=== PATIENT | female | born 1965 | race Caucasian/White ===

== ENCOUNTER 2017-02-13 16:05 | Inpatient (IN) | payer OTHER ==
[2017-02-13 16:41] VITALS: BMI 37.8
[2017-02-13 18:59] LABS: BASOPHIL 0.4 % (0-2.0); NEUTROPHILS 83.4 % (42.8-82.8); PLATELET COUNT 232 K/MM3 (134-434); RDW 14.7 % (11.6-15.6); WHITE BLOOD COUNT 8.3 K/mm3 (4.0-10.0)
[2017-02-13 19:01] LABS: VENOUS PH 7.49 (7.32-7.42)
--- NOTE | 2017-02-13 19:04 | PDOC ---
History of Present Illness - General Chief Complaint: SIRS, Suspected/Possible Stated Complaint: FEVER, TREMORS, Abd pain History Source: Patient Exam Limitations: No Limitations - History of Present Illness Travel History: No Initial Comments: 02/13/17 19:02 51 yo F with h/o HTN here wtih c/o lower abd pain, fever chils and flank pain. started 3 days ago, no relief with meds. does have nausea, no vomiting. urinary frequency, and dysuria. pelvic, suprapubic pressure. no mod factors. no cough, no cp no sob. no vagina dc or bleeding. no change to bowels. pcp at [facility] Timing/Duration: reports: constant, getting worse Quality: reports: moderate Abdominal Pain Onset Location: reports: suprapubic Pain Radiation: reports: no radiation Activities at Onset: reports: none Treatment Prior to Arrive: improves with: analgesics Aggravating Factors: improves with: None Alleviating Factors: improves with: None Past History - Past Medical History Allergies/Adverse Reactions: Allergies Allergy/AdvReac Type Severity Reaction Status Date / Time No Known Allergies Allergy Verified 02/13/17 16:27 Home Medications: Ambulatory Orders Levofloxacin [Levaquin] 750 mg PO DAILY #3 tablet 02/17/17 Cardiac Disorders: Yes (mitral valve prolapse) HTN: Yes Hypercholesterolemia: Yes - Psycho/Social/Smoking Cessation Hx Suicidal Ideation: No Smoking History: Never smoked Information on smoking cessation initiated: No Hx Alcohol Use: No Drug/Substance Use Hx: No Substance Use Type: None Review of Systems - Review of Systems Constitutional: Yes: Chills, Diaphoresis, Fever HEENTM: No: Eye Pain, Blurred Vision Respiratory: No: Cough, Orthopnea Cardiac (ROS): No: Chest Pain, Edema ABD/GI: Yes: Other (abd pain). No: Abdominal Distended, Abd. Pain w/ defecation : Yes: Burning, Dysuria, Frequency, Flank Pain Musculoskeletal: Yes: Back Pain All Other Systems: Reviewed and Negative *Physical Exam - Vital Signs Last Vital Signs Temp Pulse Resp BP Pulse Ox 102.6 F H 105 H 18 137/56 98 02/13/17 16:26 02/13/17 16:26 02/13/17 16:26 02/13/17 16:26 02/13/17 16:26 - Physical Exam General Appearance: Yes: Nourished HEENT: positive: Normal ENT Inspection, Normal Voice, Other (dry mucous membranes) Respiratory/Chest: positive: Lungs Clear, Normal Breath Sounds Cardiovascular: positive: Regular Rhythm, Regular Rate. negative: Edema, JVD, Murmur Vascular Pulses: Dorsalis-Pedis (R): 2+, Doralis-Pedis (L): 2+ Gastrointestinal/Abdominal: positive: Normal Bowel Sounds, Other (suprapubic ttp , no rebound no guarding. ) Musculoskeletal: positive: CVA Tenderness Extremity: positive: Normal Capillary Refill Integumentary: positive: Normal Color, Dry, Warm ED Treatment Course - LABORATORY CBC & Chemistry Diagram: 02/17/17 06:20 02/16/17 06:00 - ADDITIONAL ORDERS Additional order review: Laboratory Results 02/13/17 19:00 VBG pH 7.49 H POC VBG pCO2 33.5 L POC VBG pO2 56.3 H Mixed VBG HCO3 25.0 02/13/17 18:43 RBC 4.36 MCV 78.0 L MCHC 32.0 RDW 14.7 MPV 8.0 Neutrophils % 83.4 H Lymphocytes % 7.9 L Monocytes % 8.3 Eosinophils % 0.0 Basophils % 0.4 *DC/Admit/Observation/Transfer Diagnosis at time of Disposition: Pyelonephritis Fever Qualifiers: Encounter type: initial encounter - Discharge Dispostion Condition at time of disposition: Stable Admit: Yes - Prescriptions
[2017-02-13 19:09] LABS: URINE APPEARANCE CLEAR; URINE BILIRUBIN NEGATIVE (NEGATIVE); URINE BLOOD NEGATIVE (NEGATIVE); URINE COLOR YELLOW; URINE GLUCOSE (UA) NEGATIVE (NEGATIVE); URINE KETONE NEGATIVE (NEGATIVE); URINE NITRITE NEGATIVE (NEGATIVE); URINE UROBILINOGEN NEGATIVE E.U./dl (0.2-1.0)
[2017-02-13 19:13] LABS: URINE LEUK ESTERASE TRACE (NEGATIVE); URINE PROTEIN 1+ (NEGATIVE)
[2017-02-13 19:15] LABS: URINE BACTERIA RARE /hpf (NONE SEEN); URINE MUCUS RARE; URINE RBC 4 /hpf (0-3); URINE WBC 13 /hpf (3-5)
[2017-02-13] MEDS ORDERED: SODIUM CHLORIDE 1,000 ML IV STA ×2 (19:15)
[2017-02-13] MEDS ORDERED: ACETAMINOPHEN 1000 MG/100 ML VIAL (NON FORMULARY) IVPB ONE (19:15)
[2017-02-13] MEDS ORDERED: CEFTRIAXONE 1 GM in DEXTROSE 5%-WATER - 50 ML IVPB ONE (19:17)
[2017-02-13] MEDS ORDERED: ACETAMINOPHEN INJECTION 100 ML IVPB ONE (19:33)
[2017-02-13] MEDS ORDERED: CEFTRIAXONE 50 ML ONE (19:34)
[2017-02-13] MEDS ORDERED: ONDANSETRON 4 MG/2 ML VIAL ONE (19:37)
[2017-02-13 19:59] LABS: ALBUMIN 3.2 g/dl (3.4-5.0); ANION GAP 10 (8-16); CALCIUM 8.2 mg/dL (8.5-10.1); CO2 26 mmol/L (21-32); GLUCOSE,RANDOM 117 mg/dL (74-106)
[2017-02-13 20:02] LABS: ALK PHOS 65 U/L (45-117); BILIRUBIN,TOTAL 0.3 mg/dL (0.2-1.0); COCKROFT - GAULT 90.5845; CREATININE 0.9 mg/dL (0.55-1.02); SGOT/AST 37 U/L (15-37); SGPT/ALT 35 U/L (12-78)
[2017-02-13] MEDS ORDERED: KETOROLAC TROMETHAMINE 15 MG/ML VIAL IVPUSH ONE (21:27)
[2017-02-13] MEDS ORDERED: KETOROLAC TROMETHAMINE 15 MG/ML VIAL ONE (21:54)
[2017-02-13] MEDS ORDERED: KETOROLAC TROMETHAMINE 15 MG/ML VIAL IVPUSH PRN (22:13)
[2017-02-13] MEDS ORDERED: DOCUSATE SODIUM 100 MG CAPSULE (FP) PO PRN (22:13)
[2017-02-13] MEDS ORDERED: ONDANSETRON 4 MG/2 ML VIAL IVPB PRN (22:13)
--- NOTE | 2017-02-13 22:26 | HP ---
<Amee Bailey - Last Filed: 02/13/17 22:50> CHIEF COMPLAINT: abdominal pain x3 days and fever PCP: HISTORY OF PRESENT ILLNESS: 51 year old female who presents to the ED complaining of 3 day hx of lower abdominal pain radiating to the groin, 10/10 intensity, exacerbated by urination , associated with fever, chills, headache and episodes of vomiting. No prior episodes of pain like this b4. No prior hx of UTI. Pt had episode of n/v while in ED. Recent Travel: No PAST MEDICAL HISTORY: hypertension PAST SURGICAL HISTORY: bilateral knee surgery, sinus surgery Social History: Smoking: no Alcohol:no Drugs: no Family History: non contributory Allergies No Known Allergies Allergy (Verified 02/13/17 16:27) HOME MEDICATIONS: Home Medications Medication Instructions Recorded Unobtainable [Unobtainable] 02/13/17 REVIEW OF SYSTEMS CONSTITUTIONAL: Present: fever Absent: chills, diaphoresis, generalized weakness, malaise, loss of appetite, weight change HEENT: Absent: rhinorrhea, nasal congestion, throat pain, throat swelling, difficulty swallowing, mouth swelling, ear pain, eye pain, visual changes CARDIOVASCULAR: Absent: chest pain, syncope, palpitations, irregular heart rate, lightheadedness , peripheral edema RESPIRATORY: Absent: cough, shortness of breath, dyspnea with exertion, orthopnea, wheezing, stridor, hemoptysis GASTROINTESTINAL: Present: lower abdominal pain, nausea, vomiting Absent: abdominal distension, diarrhea, constipation, melena, hematochezia GENITOURINARY: Present: dysuria, flank pain, genital pain Absent: frequency, urgency, hesitancy, hematuria, MUSCULOSKELETAL: Absent: myalgia, arthralgia, joint swelling, back pain, neck pain SKIN: Absent: rash, itching, pallor HEMATOLOGIC/IMMUNOLOGIC: Absent: easy bleeding, easy bruising, lymphadenopathy, frequent infections ENDOCRINE: Absent: unexplained weight gain, unexplained weight loss, heat intolerance, cold intolerance NEUROLOGIC: [place]:headache Absent:focal weakness or paresthesias, dizziness, unsteady gait, seizure, mental status changes, bladder or bowel incontinence PSYCHIATRIC: Absent: anxiety, depression, suicidal or homicidal ideation, hallucinations. PHYSICAL EXAMINATION Vital Signs - 24 hr 02/13/17 02/13/17 16:26 21:44 Temperature 102.6 F H 100.2 F H Pulse Rate 105 H Pulse Rate [ 97 H Apical] Respiratory 18 20 Rate Blood Pressure 137/56 Blood Pressure 126/79 [Left Arm] O2 Sat by Pulse 98 99 Oximetry (%) GENERAL: Awake, alert, and fully oriented, in no acute distress. HEAD: Normal with no signs of trauma. EYES: Pupils equal, round and reactive to light, extraocular movements intact, sclera anicteric, conjunctiva clear. No lid lag. EARS, NOSE, THROAT: Ears normal, nares patent, oropharynx clear without exudates. Moist mucous membranes. NECK: Normal range of motion, supple without lymphadenopathy, JVD, or masses. LUNGS: Breath sounds equal, clear to auscultation bilaterally. No wheezes, and no crackles. No accessory muscle use. HEART: Regular rate and rhythm, normal S1 and S2 without murmur, rub or gallop. ABDOMEN: (+)General obesity, Suprapubic tenderness, Lower abdomen tenderness upon palpation with no guarding or rebound. Soft, not distended, normoactive bowel sounds, no masses. No hepatomegaly or splenomegaly. MUSCULOSKELETAL: (+)bilateral CVA tenderness. Normal range of motion at all joints. No bony deformities or tenderness. UPPER EXTREMITIES: 2+ pulses, warm, well-perfused. No cyanosis. No clubbing. No peripheral edema. LOWER EXTREMITIES: 2+ pulses, warm, well-perfused. No calf tenderness. No peripheral edema. NEUROLOGICAL: Cranial nerves II-XII intact. Normal speech. Normal gait. PSYCHIATRIC: Cooperative. Good eye contact. Appropriate mood and affect. SKIN: Warm, dry, normal turgor, no rashes or lesions noted, normal capillary refill. Laboratory Results - last 24 hr 02/13/17 02/13/17 02/13/17 18:43 18:43 19:00 WBC 8.3 RBC 4.36 Hgb 10.9 Hct 34.0 MCV 78.0 L MCHC 32.0 RDW 14.7 Plt Count 232 MPV 8.0 Neutrophils % 83.4 H Lymphocytes % 7.9 L Monocytes % 8.3 Eosinophils % 0.0 Basophils % 0.4 VBG pH 7.49 H POC VBG pCO2 33.5 L POC VBG pO2 56.3 H Mixed VBG HCO3 25.0 Sodium 137 Potassium 3.4 L Chloride 101 Carbon Dioxide 26 Anion Gap 10 BUN 15 Creatinine 0.9 Creat Clearance w eGFR > 60 Random Glucose 117 H Lactic Acid Calcium 8.2 L Total Bilirubin 0.3 AST 37 ALT 35 Alkaline Phosphatase 65 Total Protein 7.0 Albumin 3.2 L Urine Color Urine Appearance Urine pH Ur Specific [place] Urine Protein Urine Glucose (UA) Urine Ketones Urine Blood Urine Nitrite Urine Bilirubin Urine Urobilinogen Ur Leukocyte Esterase Urine RBC Urine WBC Ur Epithelial Cells Urine Bacteria Urine Mucus 02/13/17 02/13/17 19:00 19:00 WBC RBC Hgb Hct MCV MCHC RDW Plt Count MPV Neutrophils % Lymphocytes % Monocytes % Eosinophils % Basophils % VBG pH POC VBG pCO2 POC VBG pO2 Mixed VBG HCO3 Sodium Potassium Chloride Carbon Dioxide Anion Gap BUN Creatinine Creat Clearance w eGFR Random Glucose Lactic Acid 1.055 Calcium Total Bilirubin AST ALT Alkaline Phosphatase Total Protein Albumin Urine Color Yellow Urine Appearance Clear Urine pH 5.0 Ur Specific [place] 1.020 Urine Protein 1+ H Urine Glucose (UA) Negative Urine Ketones Negative Urine Blood Negative Urine Nitrite Negative Urine Bilirubin Negative Urine Urobilinogen Negative Ur Leukocyte Esterase Trace H Urine RBC 4 Urine WBC 13 Ur Epithelial Cells Rare Urine Bacteria Rare Urine Mucus Rare CT Abdomen and Pelvis : HISTORY PROVIDED: Rule out diverticulitis. Sequential axial images were obtained from the domes of the diaphragms through the symphysis pubis following the administration of both oral and intravenous contrast material. The study is markedlylimited due to the patient's poor cooperation. The liver, spleen, pancreas, adrenal glands and kidneys demonstrate no significant abnormalities. There is a 1.6 cm left hepatic cyst. The gallbladder is clear. There is no evidence of intra-abdominal or retroperitoneal lymphadenopathy or fluid collections. There is no evidence of pneumoperitoneum, bowel obstruction or intra-abdominal abscess. There is no CT evidence of acute appendicitis or diverticulitis. Examination of the pelvis demonstrates a markedly enlarged and heterogeneous uterus. This is consistent with multiple leiomyomata. There is no evidence of pelvic masses, fluid collections or lymphadenopathy. IMPRESSION: Fibroid uterus with no evidence of diverticulitis or acute pathology. Limited study as described above. Reported By: William Wright MD 02/13/17 ASSESSMENT/PLAN: 51 y old female that presents with dysuria, fever, clinical signs of pyelonephritis supported by abnormal UA 1. Acute cystitis/ possible pyelonephritis. - obtain urine cultures - pt received IV rocephin and will continue - will adjust abx based on culture results - IVF - Pain control and antipyretics - CT scan of abdomen ordered and will follow results closely r/o obstructive nephropathy, r/o possible diverticulitis. 2. SIRS, fever, tachycardia, source of infection being urinary tract, hemodynamically stable. - Will treat underlying cause as mentioned above 3. Hx of hypertension/stable - For now we will Monitor of medications, BP is optimally controlled Based on pt's symptoms upon presentation (possible sepsis, pyelonephritis, nausea and vomiting) risk of further deterioration of her condition due to inability to tolerate oral medications, her condition meets necessity for hospitalization with anticipated length of treatment with abx greater than 2 midnights. Will admit as an inpatient. Documentation prepared by ZARINA Dodd, acting as rn medical inpatient services for Ellis Bermudez MD. <Ellis Bermudez - Last Filed: 02/13/17 23:01> : Visit type - Emergency Visit Emergency Visit: Yes Care time: The patient presented to the Emergency Department on the above date and was hospitalized for further evaluation of their emergent condition. - New Patient This patient is new to me today: Yes Date on this admission: 02/13/17 - Critical Care Critical Care patient: No
[2017-02-13] MEDS: SODIUM CHLORIDE 1,000 ML IV SCH (22:34)
--- NOTE | 2017-02-13 23:32 | PDOC ---
*Physical Exam - Vital Signs Last Vital Signs Temp Pulse Resp BP Pulse Ox 100.2 F H 97 H 20 126/79 99 02/13/17 21:44 02/13/17 21:44 02/13/17 21:44 02/13/17 21:44 02/13/17 21:44 ED Treatment Course - LABORATORY CBC & Chemistry Diagram: 02/13/17 18:43 02/13/17 18:43 - ADDITIONAL ORDERS Additional order review: Laboratory Results 02/13/17 02/13/17 02/13/17 19:00 19:00 19:00 VBG pH 7.49 H POC VBG pCO2 33.5 L POC VBG pO2 56.3 H Mixed VBG HCO3 25.0 Sodium Potassium Chloride Carbon Dioxide Anion Gap BUN Creatinine Creat Clearance w eGFR Random Glucose Lactic Acid 1.055 Calcium Total Bilirubin AST ALT Alkaline Phosphatase Total Protein Albumin Urine Color Yellow Urine Appearance Clear Urine pH 5.0 Ur Specific [place] 1.020 Urine Protein 1+ H Urine Glucose (UA) Negative Urine Ketones Negative Urine Blood Negative Urine Nitrite Negative Urine Bilirubin Negative Urine Urobilinogen Negative Ur Leukocyte Esterase Trace H Urine RBC 4 Urine WBC 13 Ur Epithelial Cells Rare Urine Bacteria Rare Urine Mucus Rare 02/13/17 18:43 VBG pH POC VBG pCO2 POC VBG pO2 Mixed VBG HCO3 Sodium 137 Potassium 3.4 L Chloride 101 Carbon Dioxide 26 Anion Gap 10 BUN 15 Creatinine 0.9 Creat Clearance w eGFR > 60 Random Glucose 117 H Lactic Acid Calcium 8.2 L Total Bilirubin 0.3 AST 37 ALT 35 Alkaline Phosphatase 65 Total Protein 7.0 Albumin 3.2 L Urine Color Urine Appearance Urine pH Ur Specific [place] Urine Protein Urine Glucose (UA) Urine Ketones Urine Blood Urine Nitrite Urine Bilirubin Urine Urobilinogen Ur Leukocyte Esterase Urine RBC Urine WBC Ur Epithelial Cells Urine Bacteria Urine Mucus 02/13/17 18:43 RBC 4.36 MCV 78.0 L MCHC 32.0 RDW 14.7 MPV 8.0 Neutrophils % 83.4 H Lymphocytes % 7.9 L Monocytes % 8.3 Eosinophils % 0.0 Basophils % 0.4 - Medications Given in the ED: ED Medications Discontinued Medications Generic Name Dose Route Start Last Admin Trade Name Freq PRN Reason Stop Dose Admin Acetaminophen 1,000 mg 02/13/17 19:15 02/13/17 19:57 Ofirmev Injection - IVPB 02/13/17 19:16 1,000 mg ONCE ONE Administration Sodium Chloride 1,000 mls @ 1,000 mls/hr 02/13/17 19:15 02/13/17 19:58 Normal Saline - IV 02/13/17 20:14 1,000 mls/hr ASDIR STA Administration Sodium Chloride 1,000 mls @ 1,000 mls/hr 02/13/17 19:15 02/13/17 19:00 Normal Saline - IV 02/13/17 20:14 1,000 mls/hr ASDIR STA Administration Ceftriaxone Sodium 1 gm/ 50 mls @ 100 mls/hr 02/13/17 19:17 02/13/17 19:30 Dextrose IVPB 02/13/17 19:46 100 mls/hr ONCE ONE Administration Ketorolac Tromethamine 15 mg 02/13/17 21:27 02/13/17 21:48 Toradol Injection - IVPUSH 02/13/17 21:28 15 mg ONCE ONE Administration *DC/Admit/Observation/Transfer Diagnosis at time of Disposition: Pyelonephritis Fever Qualifiers: Encounter type: initial encounter - Discharge Dispostion Condition at time of disposition: Stable Admit: Yes
[2017-02-14] MEDS ORDERED: ACETAMINOPHEN 325 MG TABLET (FP) ONE (04:13)
[2017-02-14] MEDS ORDERED: ACETAMINOPHEN 325 MG TABLET (FP) PO ONE (04:22)
[2017-02-14] MEDS ORDERED: POTASSIUM CHLORIDE TABS 10 MEQ TABLET.ER (FP) PO ONE (06:06)
[2017-02-14 06:52] LABS: MCH 25.4 pg (25.7-33.7); MCHC 32.5 g/dl (32.0-36.0); MEAN CELL VOLUME 78.3 fl (80-96); MEAN PLT VOLUME 8.5 fl (7.5-11.1); PLATELET COUNT 178 K/MM3 (134-434); WHITE BLOOD COUNT 7.4 K/mm3 (4.0-10.0)
[2017-02-14 07:00] LABS: CALCIUM 7.3 mg/dL (8.5-10.1); COCKROFT - GAULT 81.5235; MAGNESIUM 1.8 mg/dL (1.8-2.4)
[2017-02-14] MEDS ORDERED: HEPARIN NA (PORCINE) 5,000 UNITS/ML 1ML VIAL ONE (09:15)
[2017-02-14] MEDS ORDERED: CEFTRIAXONE 50 ML ONE (09:15)
[2017-02-14] MEDS: HEPARIN NA (PORCINE) 5,000 UNITS/ML 1ML VIAL SQ SCH ×2 (09:23→23:30)
[2017-02-14] MEDS: CEFTRIAXONE 50 ML IVPB SCH (09:24)
[2017-02-14] MEDS ORDERED: ACETAMINOPHEN 1000 MG/100 ML VIAL (NON FORMULARY) IVPB ONE (12:04)
[2017-02-14] MEDS ORDERED: ACETAMINOPHEN INJECTION 100 ML IVPB ONE (13:06)
[2017-02-14] MEDS ORDERED: POTASSIUM CHLORIDE 10 MEQ PREMIX IVPB (POTASSIUM RIDER) IVPB SCH (15:45)
--- NOTE | 2017-02-14 16:47 | PN ---
Physical Exam: SUBJECTIVE: Patient seen and examined by me at bedside. Patient somewhat somnolent and sleepy. Does report severe abdominal pain with mild pain control. Otherwise, patient denies chest pain, palpitations, shortness of breath. OBJECTIVE: Vital Signs Period Temp Pulse Resp BP Sys/Payton Pulse Ox Last 24 Hr 98 F-102.3 F 70-102 18-20 109-135/58-78 98-99 GENERAL: Patient is sleepy and somnolent LUNGS: Breath sounds equal, clear to auscultation bilaterally, no wheezes, no crackles, no accessory muscle use. HEART: Regular rate and rhythm, S1, S2 without murmur, rub or gallop. ABDOMEN: Soft, Obese, Severe diffuse abdominal and suprapubic tenderness upon light palpation with bilateral CVA tenderness. EXTREMITIES: No peripheral edema. Laboratory Results - last 24 hr 02/14/17 02/14/17 05:40 05:40 WBC 7.4 RBC 3.80 Hgb 9.7 L D Hct 29.8 L MCV 78.3 L MCHC 32.5 RDW 15.0 Plt Count 178 D MPV 8.5 Sodium 139 Potassium 3.2 L Chloride 104 Carbon Dioxide 21 Anion Gap 14 BUN 15 Creatinine 1.0 Random Glucose 154 H D Calcium 7.3 L Magnesium 1.8 Active Medications Generic Name Dose Route Start Last Admin Trade Name Freq PRN Reason Stop Dose Admin Docusate Sodium 100 mg 02/13/17 22:13 Colace - PO Q8H PRN CONSTIPATION Heparin Sodium (Porcine) 5,000 unit 02/14/17 10:00 02/14/17 09:23 Heparin - SQ 5,000 unit BID RUTH Administration Sodium Chloride 1,000 mls @ 100 mls/hr 02/13/17 22:15 02/13/17 22:34 Normal Saline - IV 100 mls/hr ASDIR RUTH Administration Ceftriaxone Sodium 50 mls @ 100 mls/hr 02/14/17 10:00 02/14/17 09:24 Rocephin 1gm Ivpb (Pre-Docked) IVPB 100 mls/hr DAILY RUTH Administration Ketorolac Tromethamine 15 mg 02/13/17 22:13 Toradol Injection - IVPUSH 02/18/17 22:12 Q6H PRN PAIN Ondansetron HCl 4 mg 02/13/17 22:13 Zofran Injection IVPB Q6H PRN NAUSEA Potassium Chloride 10 meq 02/14/17 15:45 Potassium Chloride 10 Meq Premix Ivpb - IVPB 02/14/17 16:[address] Abdomen/Pelvis (02/13/17): Fibroid uterus with no evidence of diverticulitis or acute pathology. ASSESSMENT/PLAN: Patient is a 51 year old female with a PMHx of HTN who presented with diffuse abdominal and suprapubic pain, dysuria and intermittent fevers. Patient admitted for Possible Acute cystitis/Pyelonephritis for further management. Acute cystitis/Pyelonephritis. -Blood cultures positive for gram negative bacteria likely E.coli -Continue Ceftriaxone 1gm IV daily -Continue IV NS @100mls/hr -Pain control with Toradol 15mg IVP Q6H PRN HTN -Borderline hypotensice -Will continue to monitor BP F/E/N -IV NS @100mls/hr -Hypokalemia: Potassium chloride 20meQ IV -Regular diet Prophylaxis -Heparin 5000 units SQ BID Disposition -Clinical signs of Pyelonephritis. Will continue IV abx Visit type - Emergency Visit Emergency Visit: Yes ED Registration Date: 02/13/17 Care time: The patient presented to the Emergency Department on the above date and was hospitalized for further evaluation of their emergent condition. - New Patient This patient is new to me today: Yes Date on this admission: 02/15/17 - Critical Care Critical Care patient: No
--- NOTE | 2017-02-14 17:48 | PN ---
Teaching Attending Note Name of Resident: Kiana Garcia ATTENDING PHYSICIAN STATEMENT I saw and evaluated the patient. I reviewed the resident's note and discussed the case with the resident. I agree with the resident's findings and plan as documented. SUBJECTIVE:states abdominal pain has improved. had fever and chills when first arrived which have also resolved. denies CP, SOB, N/V/C/D. states pain started on 5 days ago. never had similar symptoms. OBJECTIVE: Last Vital Signs Temp Pulse Resp BP Pulse Ox 97.6 F 72 18 101/63 98 02/14/17 17:32 02/14/17 17:32 02/14/17 17:32 02/14/17 17:32 02/14/17 06:00 General NAD CV S1 S2 RRR no murmur/rub/gallop LUngs CTA B/L no wheezing/rales/rhonchi Abdomen soft +suprapubic tenderness and +L CVA tenderness ASSESSMENT AND PLAN: 51yo F with PMH HTN presented to the ER and was admitted for further evaluation of their emergent condition 1. Acute pylonephritis with GNR bacteremia- Tm 102.6. clinically appears to have pyelonpephritis. BCx+. will wait on official report. cont Ceftriaxone day 2. f/u official cx report. nausea control 2. Hypokalemia- Kcl 40meq 3. HTN- currently normotensive. hold oral agents. 4. DVT ppx- hep sq
[2017-02-14] MEDS: SODIUM CHLORIDE 1,000 ML IV SCH (23:30)
[2017-02-15] MEDS ORDERED: KETOROLAC TROMETHAMINE 15 MG/ML VIAL IVPB PRN (01:15)
[2017-02-15] MEDS ORDERED: diphenhydrAMINE HCL 25 MG CAPSULE (FP) PO ONE (01:15)
[2017-02-15 07:38] LABS: MCH 25.5 pg (25.7-33.7); MCHC 32.3 g/dl (32.0-36.0); MEAN PLT VOLUME 8.7 fl (7.5-11.1); PLATELET COUNT 165 K/MM3 (134-434); WHITE BLOOD COUNT 3.4 K/mm3 (4.0-10.0)
[2017-02-15 08:49] LABS: CALCIUM 7.7 mg/dL (8.5-10.1); COCKROFT - GAULT 101.9065; CREATININE 0.8 mg/dL (0.55-1.02)
[2017-02-15] MEDS: SODIUM CHLORIDE 1,000 ML IV SCH (09:00)
[2017-02-15] MEDS: CEFTRIAXONE 50 ML IVPB SCH (10:59)
[2017-02-15] MEDS: HEPARIN NA (PORCINE) 5,000 UNITS/ML 1ML VIAL SQ SCH ×2 (10:59→21:01)
[2017-02-15] MEDS ORDERED: POTASSIUM CHLORIDE TABS 20 MEQ TABLET.ER (FP) PO ONE (11:06)
--- NOTE | 2017-02-15 11:26 | PN ---
Physical Exam: SUBJECTIVE: Patient seen and examined by me at bedside. Patient reports suprapubic tenderness and lower abdominal pain. Overnight events noted for a temperature >101.0F. Otherwise, patient denies fever, chills, nausea, vomiting , chest pain, palpitations, shortness of breath. OBJECTIVE: Vital Signs Period Temp Pulse Resp BP Sys/Payton Pulse Ox Last 24 Hr 96.4 F-101.3 F 57-80 18-18 101-135/61-75 98 GENERAL: Patient is awake, alert, oriented, and in no acute distress LUNGS: Breath sounds equal, clear to auscultation bilaterally, no wheezes, no crackles, no accessory muscle use. HEART: Regular rate and rhythm, S1, S2 without murmur, rub or gallop. ABDOMEN: Soft, Obese, Mild lower abdominal and suprapubic tenderness upon light palpation with bilateral CVA tenderness. EXTREMITIES: No peripheral edema. Laboratory Results - last 24 hr 02/15/17 02/15/17 06:00 06:00 WBC 3.4 L D RBC 3.66 Hgb 9.3 L Hct 29.0 L MCV 79.0 L MCHC 32.3 RDW 15.0 Plt Count 165 MPV 8.7 Sodium 141 Potassium 3.6 Chloride 106 Carbon Dioxide 23 Anion Gap 12 BUN 11 D Creatinine 0.8 Random Glucose 80 D Calcium 7.7 L Active Medications Generic Name Dose Route Start Last Admin Trade Name Freq PRN Reason Stop Dose Admin Docusate Sodium 100 mg 02/13/17 22:13 Colace - PO Q8H PRN CONSTIPATION Heparin Sodium (Porcine) 5,000 unit 02/14/17 10:00 02/15/17 10:59 Heparin - SQ 5,000 unit BID RUTH Administration Sodium Chloride 1,000 mls @ 100 mls/hr 02/13/17 22:15 02/15/17 09:00 Normal Saline - IV 100 mls/hr ASDIR RUTH Administration Ceftriaxone Sodium 50 mls @ 100 mls/hr 02/14/17 10:00 02/15/17 10:59 Rocephin 1gm Ivpb (Pre-Docked) IVPB 100 mls/hr DAILY RUTH Administration Ketorolac Tromethamine 15 mg 02/15/17 01:15 Toradol Injection - IVPB 02/18/17 22:12 Q6H PRN PAIN Ondansetron HCl 4 mg 02/13/17 22:13 Zofran Injection IVPB Q6H PRN NAUSEA Potassium Chloride 20 meq 02/15/17 11:06 K-Dur - PO 02/15/17 11:[address] Abdomen/Pelvis (02/13/17): Fibroid uterus with no evidence of diverticulitis or acute pathology. ASSESSMENT/PLAN: Patient is a 51 year old female with a PMHx of HTN who presented with diffuse abdominal and suprapubic pain, dysuria and intermittent fevers. Patient admitted for Possible Acute cystitis/Pyelonephritis for further management. Acute cystitis/Pyelonephritis with Gram negative Bacteremia -Blood cultures positive for gram negative bacteria likely E.coli -Will wait for final cultures and sensitivities -Continue Ceftriaxone 1gm IV daily day #2 -Continue IV NS @100mls/hr -Pain control with Toradol 15mg IVP Q6H PRN HTN -controlled -Will continue to monitor BP F/E/N -IV NS @100mls/hr -Hypokalemia: Potassium chloride 20meQ IV -Regular diet Prophylaxis -Heparin 5000 units SQ BID Disposition -Clinical signs of Pyelonephritis. Fever in the last 24 hours. Awaiting cultures and sensitivities. Visit type - Emergency Visit Emergency Visit: Yes ED Registration Date: 02/13/17 Care time: The patient presented to the Emergency Department on the above date and was hospitalized for further evaluation of their emergent condition. - New Patient This patient is new to me today: No - Critical Care Critical Care patient: No
--- NOTE | 2017-02-15 12:10 | PN ---
Teaching Attending Note Name of Resident: Kiana Garcia ATTENDING PHYSICIAN STATEMENT I saw and evaluated the patient. I reviewed the resident's note and discussed the case with the resident. I agree with the resident's findings and plan as documented. SUBJECTIVE:continues to have suprapubic tenderness but improved since yesterday. denies Cp, SOB, fever, chills, N/V/C/D OBJECTIVE: Last Vital Signs Temp Pulse Resp BP Pulse Ox 98.6 F 75 18 131/61 98 02/15/17 09:00 02/15/17 09:00 02/15/17 09:00 02/15/17 09:00 02/14/17 21:00 General NAD CV S1 S2 RRR no murmur/rub/gallop LUngs CTA B/L no wheezing/rales/rhonchi Abdomen soft NT/ND obese +BS ASSESSMENT AND PLAN: 51yo F with PMH HTN presented to the ER and was admitted for further evaluation of their emergent condition 1. Acute pylonephritis with GNR bacteremia- Tm 101.3 clinically improved. awaiting for Cx reports. if fevers resolve will d/c IVF. cont Ceftriaxone day 3. f/u official cx report 2. Hypokalemia- Kcl 40meq 3. HTN- currently normotensive. hold oral agents. 4. DVT ppx- hep sq 5. spoke with over the phone (Mr Raman) answered all questions. informed him of possible discharge pending results of Cx and if remains afebrile.
[2017-02-16 08:37] LABS: CALCIUM 8.4 mg/dL (8.5-10.1); COCKROFT - GAULT 116.467; CREATININE 0.7 mg/dL (0.55-1.02)
[2017-02-16] MEDS: HEPARIN NA (PORCINE) 5,000 UNITS/ML 1ML VIAL SQ SCH ×2 (09:13→21:04)
[2017-02-16] MEDS: CEFTRIAXONE 50 ML IVPB SCH (09:13)
[2017-02-16 11:44] LABS: MCH 25.5 pg (25.7-33.7); MCHC 32.5 g/dl (32.0-36.0); MEAN CELL VOLUME 78.6 fl (80-96); MEAN PLT VOLUME 8.8 fl (7.5-11.1); PLATELET COUNT 178 K/MM3 (134-434); WHITE BLOOD COUNT 3.8 K/mm3 (4.0-10.0)
[2017-02-16] MEDS ORDERED: LISINOPRIL 20 MG TABLET (FP) PO ONE (12:03)
[2017-02-16] MEDS: LISINOPRIL 20 MG TABLET (FP) PO SCH (13:23)
--- NOTE | 2017-02-16 13:54 | PN ---
Physical Exam: SUBJECTIVE: Patient seen and examined by me at bedside. No overnight events noted. Patient reports feeling much better but still has some mild left flank pain discomfort. Otherwise, patient denies fever, chills, nausea, vomiting, abdominal pain, suprapubic pain. OBJECTIVE: Vital Signs Period Temp Pulse Resp BP Sys/Payton Pulse Ox Last 24 Hr 98.1 F-100 F 60-77 18-20 142-168/68-103 98-98 GENERAL: Patient is awake, alert, oriented, and in no acute distress LUNGS: Breath sounds equal, clear to auscultation bilaterally, no wheezes, no crackles, no accessory muscle use. HEART: Regular rate and rhythm, S1, S2 without murmur, rub or gallop. ABDOMEN: Soft, Obese, nondistended, nontender, with (+) Left CVA tenderness EXTREMITIES: No peripheral edema. Laboratory Results - last 24 hr 02/16/17 02/16/17 06:00 06:00 WBC 3.8 L RBC 3.54 L Hgb 9.0 L Hct 27.8 L MCV 78.6 L MCHC 32.5 RDW 15.0 Plt Count 178 MPV 8.8 Sodium 142 Potassium 3.9 Chloride 107 Carbon Dioxide 26 Anion Gap 9 BUN 12 Creatinine 0.7 Random Glucose 88 Calcium 8.4 L Active Medications Generic Name Dose Route Start Last Admin Trade Name Freq PRN Reason Stop Dose Admin Docusate Sodium 100 mg 02/13/17 22:13 Colace - PO Q8H PRN CONSTIPATION Heparin Sodium (Porcine) 5,000 unit 02/14/17 10:00 02/16/17 09:13 Heparin - SQ Not Given BID RUTH Ceftriaxone Sodium 50 mls @ 100 mls/hr 02/14/17 10:00 02/16/17 09:13 Rocephin 1gm Ivpb (Pre-Docked) IVPB 100 mls/hr DAILY RUTH Administration Ketorolac Tromethamine 15 mg 02/15/17 01:15 02/16/17 04:14 Toradol Injection - IVPB 02/18/17 22:12 15 mg Q6H PRN Administration PAIN Lisinopril 20 mg 02/16/17 12:03 02/16/17 13:23 Prinivil PO 20 mg DAILY RUTH Administration Ondansetron HCl 4 mg 02/13/17 22:13 Zofran Injection IVPB Q6H PRN NAUSEA Images CT Abdomen/Pelvis (02/13/17): Fibroid uterus with no evidence of diverticulitis or acute pathology. ASSESSMENT/PLAN: Patient is a 51 year old female with a PMHx of HTN who presented with diffuse abdominal and suprapubic pain, dysuria and intermittent fevers. Patient admitted for Possible Acute cystitis/Pyelonephritis for further management. Acute cystitis/Pyelonephritis with Gram negative Bacteremia -Blood cultures positive for E.coli with pansensitivity -Urine cultures positive for E.coli with pansensitivity -Repeat blood cultures sent -Continue Ceftriaxone 1gm IV daily day #4 -Continue IV NS @100mls/hr -Pain control with Toradol 15mg IVP Q6H PRN HTN -Patient hypertensive this morning and overnight -Medications confirmed and patient takes lisinopril/HCTZ 20/25mg -Will give Lisinopril 20 and not HCTZ due to patients hypokalemia -Will continue to monitor BP Acute Microcytic Anemia with Leukopenia -Iron studies ordered -Currently asymptomatic Hypokalemia-Resolved -Continue to monitor F/E/N -IV NS @100mls/hr -Electrolytes wnl -Regular diet Prophylaxis -Heparin 5000 units SQ BID Disposition -Repeat blood cultures sent. D/C pending blood culture result Visit type - Emergency Visit Emergency Visit: Yes ED Registration Date: 02/13/17 Care time: The patient presented to the Emergency Department on the above date and was hospitalized for further evaluation of their emergent condition. - New Patient This patient is new to me today: No - Critical Care Critical Care patient: No
--- NOTE | 2017-02-16 14:13 | PN ---
Teaching Attending Note Name of Resident: Kiana Garcia ATTENDING PHYSICIAN STATEMENT I saw and evaluated the patient. I reviewed the resident's note and discussed the case with the resident. I agree with the resident's findings and plan as documented. SUBJECTIVE:currently asymtptomatic. denies hematuria, BRBPR,melena, CP, SOB, fever, chills OBJECTIVE: Last Vital Signs Temp Pulse Resp BP Pulse Ox 98.8 F 63 20 147/92 98 02/16/17 13:42 02/16/17 13:42 02/16/17 13:42 02/16/17 13:42 02/16/17 09:13 General NAD Abdomen soft NT/ND obese +BS ASSESSMENT AND PLAN: 51yo F with PMH HTN presented to the ER and was admitted for further evaluation of their emergent condition 1. Acute pylonephritis with Ecoli bacteremia- afebrile 48H, repeat BCx pending. once results show bactermia cleared will d/c on oral abx. currently on Ceftriaxone day 4. f/u official cx report 2. Hypokalemia- resolved 3. Acute microcytic anemia- some dilutional component. no sites of bleeding. check iron studies. no indication for txn 3. HTN- above goal. takes HCTZ and lisinopril at home. will re-start lisinopril. monitor 4. DVT ppx- hep sq 5. spoke with and d/w plan. answered all questions. verbalized understanding and agreement in plan.
[2017-02-17 07:42] LABS: BASOPHIL 0.9 % (0-2.0); EOSINOPHIL 3.4 % (0-4.5); MCH 25.6 pg (25.7-33.7); MEAN CELL VOLUME 77.7 fl (80-96); MEAN PLT VOLUME 8.3 fl (7.5-11.1); NEUTROPHILS 55.8 % (42.8-82.8); PLATELET COUNT 248 K/MM3 (134-434); RDW 15.1 % (11.6-15.6)
[2017-02-17 09:40] VITALS: BP 140/71; PULSE 69; TEMP 98.4
[2017-02-17] MEDS ORDERED: PT OWN MED DRAWER 7, Y5N ONE (10:58)
[2017-02-17] MEDS: CEFTRIAXONE 50 ML IVPB SCH ×2 (11:02→11:40)
[2017-02-17] MEDS: LISINOPRIL 20 MG TABLET (FP) PO SCH (11:02)
[2017-02-17] MEDS: HEPARIN NA (PORCINE) 5,000 UNITS/ML 1ML VIAL SQ SCH (11:10)
--- NOTE | 2017-02-17 11:57 | DS ---
Physical Exam: SUBJECTIVE: Patient seen and examined by me at bedside. No overnight events noted. Patient offers no complaints and has no pain. Otherwise, patient denies fever, chills, nausea, vomiting, abdominal pain, back pain, chest pain, palpitations, shortness of breath, dysuria, hematuria. OBJECTIVE: Vital Signs Period Temp Pulse Resp BP Sys/Payton Pulse Ox Last 24 Hr 97.2 F-98.8 F 53-69 20-20 121-151/61-92 98-98 PHYSICAL EXAM GENERAL: Patient is awake, alert, oriented, and in no acute distress LUNGS: Breath sounds equal, clear to auscultation bilaterally, no wheezes, no crackles, no accessory muscle use. HEART: Regular rate and rhythm, S1, S2 without murmur, rub or gallop. ABDOMEN: Soft, Obese, nondistended, nontender. (-) CVA tenderness bilaterally EXTREMITIES: No peripheral edema. LABS Laboratory Results - last 24 hr 02/16/17 02/17/17 02/17/17 06:00 06:20 06:20 WBC 3.8 L 6.0 D RBC 3.54 L 3.86 Hgb 9.0 L 9.9 L Hct 27.8 L 30.0 L MCV 78.6 L 77.7 L MCHC 32.5 33.0 RDW 15.0 15.1 Plt Count 178 248 D MPV 8.8 8.3 Neutrophils % 55.8 D Lymphocytes % 27.7 D Monocytes % 12.2 H Eosinophils % 3.4 D Basophils % 0.[address] Abdomen/Pelvis (02/13/17): Fibroid uterus with no evidence of diverticulitis or acute pathology. HOSPITAL COURSE: Patient is a 51 year old female with a PMHx of HTN who presented with diffuse abdominal and suprapubic pain, dysuria and intermittent fevers. Patient admitted for Possible Acute cystitis/Pyelonephritis. U/A showed only trace leukocyte esterase and patient had no leukocytosis. High suspicion for pyelonephritis/ acute cystitis and patient was started on IV Ceftriaxone 1gm daily. Blood and urine cultures were positive for E.coli pansensitive and therefore patient was diagnosed with gram negative bacteremia. IV antibiotic with Ceftriaxone was continued and patient responded well to therapy. She remained afebrile throughout the last three days of the course with no leukocytosis and minimal to no pain. Symptoms resolved. Patient is to be sent home with PO antibiotic Levaquin 750mg for three days for a total of 7 days of antibiotic treatment. 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 You are being prescribed Levaquin 750mg mg once a day for three days -You must follow with your primary care physician within a week -If you start to have symptoms such as severe abdominal or back pain, vomiting, or fever >101.0 F without adequate control with pain medication, return to the emergency department. Disposition: HOME - Home Medications Comprehensive Discharge Medication List: Ambulatory Orders Levofloxacin [Levaquin] 750 mg PO DAILY #3 tablet 02/17/17 This patient is new to me today: No Emergency Visit: Yes ED Registration Date: 02/13/17 Care time: The patient presented to the Emergency Department on the above date and was hospitalized for further evaluation of their emergent condition. Critical Care patient: No - Discharge Referral Referred to [facility] No
--- NOTE | 2017-02-17 13:13 | PN ---
Teaching Attending Note Name of Resident: Kiana Garcia ATTENDING PHYSICIAN STATEMENT I saw and evaluated the patient. I reviewed the resident's note and discussed the case with the resident. I agree with the resident's findings and plan as documented. SUBJECTIVE:currently asymptomatic. denies CP, SOB,fever, chills, N/V/C/D OBJECTIVE: Last Vital Signs Temp Pulse Resp BP Pulse Ox 98.4 F 69 20 140/71 98 02/17/17 09:39 02/17/17 09:39 02/17/17 09:39 02/17/17 09:39 02/17/17 09:00 General NAD Abdomen soft NT/ND obese +BS ASSESSMENT AND PLAN: 51yo F with PMH HTN presented to the ER and was admitted for further evaluation of their emergent condition 1. Acute pylonephritis with Ecoli bacteremia- afebrile 72H, repeat BCx negative. will d/c on levaquin to compelte 7 day course of abx. 2. Hypokalemia- resolved 3. Acute microcytic anemia- improved. no signs of bleeding. iron studies pending. no indication for txn 3. HTN- improved,. cont lisinopril on discharge 4. DVT ppx- hep sq 5. spoke with and d/w plan. answered all questions. verbalized understanding and agreement in plan.
[2017-02-18 08:07] LABS: SERUM IRON 29 ug/dL (27-159); TOTAL IRON BINDING CAPACITY 290 ug/dL (250-450); UIBC 261 ug/dL (131-425)
== END 2017-02-17 14:17 | disposition home or self-care (01) | DRG 463 ==
LOC: JER 16:05 → JERBED 23:32 → J7W 02-14 18:55
PROVIDERS: ADMIT Internal Medicine; ATTEND Internal Medicine
DX: N10 Acute pyelonephritis (principal); I10 Essential (primary) hypertension; B96.29 Other Escherichia coli [E. coli] as the cause of diseases classified elsewhere; E87.6 Hypokalemia; D64.9 Anemia, unspecified; N30.00 Acute cystitis without hematuria; N11.1 Chronic obstructive pyelonephritis; D25.9 Leiomyoma of uterus, unspecified; R65.10 Systemic inflammatory response syndrome (SIRS) of non-infectious origin without acute organ dysfunction; R78.81 Bacteremia
CPT/HCPCS: 36415; 74177-TC; 80048; 80053; 81003; 81015; 82728; 82803; 83540; 83550; 83605; 83735; 85025; 85027; 87040; 87086; 87186; 99284-25; J1644; Q9967